=== PATIENT | male | born 1960 | race Caucasian/White ===

== ENCOUNTER 2020-06-26 11:06 | Inpatient (IN) | payer MEDICAID ==
[~2020-06-26] VITALS: Ht 172.7 cm; Wt 55.0 kg
[2020-06-26] MEDS ORDERED: nitroGLYCERIN 0.4mg/hour patch TD ONE (13:15)
[2020-06-26] MEDS ORDERED: aspirin 81mg tab.chew PO ONE (13:15)
[2020-06-26] MEDS ORDERED: ondansetron/PF 4mg/2ml inj IV PRN (13:55)
[2020-06-26] MEDS ORDERED: morphine 2 MG/ML inj. syringe IV PRN (13:55)
[2020-06-26] MEDS ORDERED: acetaminophen 325mg tablet PO PRN (13:55)
[2020-06-26] MEDS ORDERED: mag hydrox/Alum hydrox/simeth 30ml oral suspension PO PRN (13:55)
[2020-06-26] MEDS: CefTRIAXone/D5W-Rocephin 1gm 50 ML IV SCH (14:36)
[2020-06-26] MEDS: normal saline 1000ml 1,000 ML IV SCH (14:37)
[2020-06-26] MEDS: ipratropium/albuterol 3ml nebule NEB SCH ×3 (15:08→23:25)
[2020-06-26] MEDS: hydrALAZINE 20mg/ml inj. IV PRN (17:53)
[2020-06-26 18:00] VITALS: BP 164/100
--- NOTE | 2020-06-26 18:01 | NUR ---
PAGER ID: [phone] MESSAGE: [id number] Roland Crooks Uncontrolled blood sugars. May I initiate protocol please? Maile [id number]
--- NOTE | 2020-06-26 18:05 | NUR ---
C/o difficulty breathing. Paged RT.
--- NOTE | 2020-06-26 18:08 | NUR ---
PAGER ID: [phone] MESSAGE: [id number] Roland Crooks C/o difficulty breathing. Very wheezy. May I please order PRN breathing tx? Maile [phone]
[2020-06-26] MEDS ORDERED: albuterol 2.5 MG/3 ML nebule NEB PRN (18:20)
[2020-06-26] MEDS ORDERED: dextrose ORAL solution 15 GM/59 ML bottle PO PRN ×2 (18:20)
[2020-06-26] MEDS ORDERED: dextrose 50%-water 50ml dispensing syringe IV PRN ×2 (18:20)
[2020-06-26] MEDS ORDERED: MESSAGE TO PHARMACY PO ONE (18:20)
[2020-06-26] MEDS ORDERED: glucagon, human recombinant 1mg kit SUBCUT PRN (18:20)
--- NOTE | 2020-06-26 18:28 | NUR ---
PAGER ID: [phone] MESSAGE: [id number] Roland Crooks No labs ordered. May we order routine labs? Maile [phone]
--- NOTE | 2020-06-26 18:38 | NUR ---
Problems reprioritized. Patient report given, questions answered & plan of care reviewed with Brandy SINGH.
--- NOTE | 2020-06-26 18:41 | NUR ---
Patient in room PCU 3017. I have received report from SAMANTHA Gr and had the opportunity to ask questions and assume patient care.
[2020-06-26] MEDS ORDERED: LORazepam 2 mg/ml vial IV ONE (19:25)
[2020-06-26] MEDS ORDERED: albuterol 2.5 MG/3 ML nebule CONTNEB PRN (19:25)
[2020-06-26] MEDS ORDERED: GABA300C PO (19:39)
[2020-06-26] MEDS ORDERED: CHOL500049 PO (19:39)
[2020-06-26] MEDS ORDERED: GLIM4TAB7 PO (19:39)
[2020-06-26] MEDS ORDERED: PRAV10TA39 PO (19:39)
[2020-06-26] MEDS ORDERED: NITR0.4T48 SL (19:39)
[2020-06-26] MEDS ORDERED: MIRT30TA8 PO (19:39)
[2020-06-26] MEDS ORDERED: SACC250C9 PO (19:39)
[2020-06-26] MEDS ORDERED: ASPI-611 PO (19:39)
[2020-06-26] MEDS ORDERED: AMYL1CAP54 PO (19:39)
[2020-06-26] MEDS ORDERED: MAGN400C PO (19:39)
[2020-06-26] MEDS ORDERED: HYDR-4353 PO (19:39)
[2020-06-26] MEDS: methylPREDNISolone sod succ 125mg/2ml vial IV SCH (19:45)
[2020-06-26] MEDS: insulin Lispro (HumaLOG) vial - multi-dose SQ SCH ×2 (19:45→21:27)
[2020-06-26 20:39] LABS: BASOPHILS % (AUTO) 0.3 % (0-1); EOSINOPHILS % (AUTO) 0 % (0-6); HEMATOCRIT 35.7 % (42.0-52.0); HEMOGLOBIN 11.8 g/dl (14.0-17.9); LYMPHOCYTES # (AUTO) 0.4 X10'3 (1.1-4.8); LYMPHOCYTES % (AUTO) 2.9 % (21-51); MEAN CORPUSCULAR HEMOGLOBIN 29.6 PG (27.0-31.0); MEAN CORPUSCULAR VOLUME 89.5 FL (78-98); MEAN PLATELET VOLUME 9.7 FL (7.4-10.4); MONOCYTES % (AUTO) 7.7 % (2-12); NEUTROPHILS # (AUTO) 12.1 X10'3 (1.8-7.7); NEUTROPHILS % (AUTO) 89.1 % (42-75); PLATELET COUNT 174 X10'3 (140-440); RED BLOOD COUNT 3.99 X10'6 (4.70-6.10); RED CELL DISTRIBUTION WIDTH 14.5 % (11.5-14.5); WHITE BLOOD COUNT 13.6 X10'3 (4.5-11.0)
[2020-06-26 20:44] LABS: ALANINE AMINOTRANSFERASE 75 U/L (12-78); ALBUMIN 3.2 G/DL (3.4-5.0); ALBUMIN/GLOBULIN RATIO 0.9 (1.1-1.5); ALKALINE PHOSPHATASE 122 IU/L (46-116); ANION GAP 11 (8-16); ASPARTATE AMINO TRANSFERASE 43 U/L (10-37); BILIRUBIN,TOTAL 1.4 MG/DL (0.1-1.0); BLOOD UREA NITROGEN 35 MG/DL (7-18); CALCIUM 8.6 MG/DL (8.5-10.1); CHLORIDE 97 MMOL/L (99-107); CREATININE 1.52 MG/DL (0.60-1.10); POTASSIUM 3.6 MMOL/L (3.5-5.1); SODIUM 132 MMOL/L (135-145); TOTAL CARBON DIOXIDE 24.2 MMOL/L (24-32); TOTAL PROTEIN 6.9 G/DL (6.4-8.2); eGFR 47 ML/MIN
[2020-06-26 20:50] LABS: GLUCOSE 509 MG/DL (70-104)
[2020-06-26] MEDS: heparin, porcine 5000 units/ml vial SQ SCH (21:20)
[2020-06-26] MEDS: insulin glargine (Lantus) pen - multi-dose SQ SCH (21:25)
[2020-06-26 22:00] VITALS: BP 143/100
[2020-06-27] VITALS (7 sets, daily range): BP systolic 122–163; BP diastolic 62–112
[2020-06-27] MEDS: normal saline 1000ml 1,000 ML IV SCH (00:12)
--- NOTE | 2020-06-27 00:24 | NUR ---
PRN hydralazine given per order for BP 143/100
[2020-06-27] MEDS: ipratropium/albuterol 3ml nebule NEB SCH ×6 (03:40→23:21)
[2020-06-27 05:59] LABS: BASOPHILS % (AUTO) 0.3 % (0-1); EOSINOPHILS % (AUTO) 0 % (0-6); HEMATOCRIT 35.8 % (42.0-52.0); HEMOGLOBIN 12.2 g/dl (14.0-17.9); LYMPHOCYTES # (AUTO) 0.4 X10'3 (1.1-4.8); LYMPHOCYTES % (AUTO) 4.2 % (21-51); MEAN CORPUSCULAR HEMOGLOBIN 30.1 PG (27.0-31.0); MEAN CORPUSCULAR HGB CONC 34.2 g/dL (33.0-36.5); MEAN CORPUSCULAR VOLUME 88.1 FL (78-98); MEAN PLATELET VOLUME 9.3 FL (7.4-10.4); MONOCYTES # (AUTO) 0.4 X10'3 (0-0.9); MONOCYTES % (AUTO) 3.9 % (2-12); NEUTROPHILS # (AUTO) 9.7 X10'3 (1.8-7.7); NEUTROPHILS % (AUTO) 91.6 % (42-75); PLATELET COUNT 180 X10'3 (140-440); RED BLOOD COUNT 4.06 X10'6 (4.70-6.10); RED CELL DISTRIBUTION WIDTH 14.8 % (11.5-14.5); WHITE BLOOD COUNT 10.6 X10'3 (4.5-11.0)
[2020-06-27 06:04] LABS: ALBUMIN 3.3 G/DL (3.4-5.0); ANION GAP 12 (8-16); BLOOD UREA NITROGEN 32 MG/DL (7-18); BUN/CREATININE RATIO 26.9 (5.4-32.0); CHLORIDE 102 MMOL/L (99-107); CREATININE 1.19 MG/DL (0.60-1.10); GLUCOSE 55 MG/DL (70-104); SODIUM 139 MMOL/L (135-145); TOTAL CARBON DIOXIDE 25.3 MMOL/L (24-32); eGFR 62 ML/MIN
--- NOTE | 2020-06-27 06:23 | NUR ---
Problems reprioritized. Patient report given, questions answered & plan of care reviewed with Whitney Cano RN and SAMANTHA Auguste.
--- NOTE | 2020-06-27 06:26 | NUR ---
critical K of 3.0 PAGER ID: [phone] MESSAGE: [id number] Angel Crooks: critical K of 3.0. can he please be on protocol? Thanks -SAMANTHA Olson
[2020-06-27] MEDS ORDERED: magnesium 4gm in 100ml NS 100 ML IV PRN (06:30)
[2020-06-27] MEDS ORDERED: potassium Cl 20 mEq SR tablet PO PRN (06:30)
[2020-06-27] MEDS ORDERED: magnesium Cl slow-release 64mg tablet PO PRN (06:30)
[2020-06-27] MEDS ORDERED: potassium CL 10mEq/100ml bag 100 ML IV PRN (06:30)
--- NOTE | 2020-06-27 06:44 | NUR ---
Patient in room PCU 3017. I have received report from Brandy SINGH and had the opportunity to ask questions and assume patient care. Patient is resting in bed, blood sugar was 55 and patient was treated according to protocol. Will continue to monitor.
[2020-06-27] MEDS: morphine 2 MG/ML inj. syringe IV PRN ×3 (08:02→21:35)
[2020-06-27] MEDS: CefTRIAXone/D5W-Rocephin 1gm 50 ML IV SCH (08:06)
[2020-06-27] MEDS: methylPREDNISolone sod succ 125mg/2ml vial IV SCH (08:08)
[2020-06-27] MEDS: aspirin 81mg tablet.DR PO SCH (08:09)
[2020-06-27] MEDS: heparin, porcine 5000 units/ml vial SQ SCH ×2 (08:11→19:40)
[2020-06-27] MEDS: atorvastatin 20mg tablet PO SCH (08:12)
[2020-06-27] MEDS: hydrALAZINE 20mg/ml inj. IV PRN ×2 (11:02→17:11)
--- NOTE | 2020-06-27 12:00 | NUR ---
MESSAGE: Rm. [id number] Valeriy Pt. asking about home meds [place] 10 and Creon. Both have been reviewed and on the med rec. Thanks Kalyani [phone]
--- NOTE | 2020-06-27 14:04 | NUR ---
Malnutrition/DM Consults: Pt admit w/ acute respiratory failure, COPD exacerbation continues to smoke, DM, uncontrolled HTN, and type 2 VA r/t demand ischemia per MD. A1C 7.3 on steroids this admit. Pt seen by RD reports wt 4 years ago prior to initial pancreatitis episode 150# but unable to provide more recent wt hx. Pt reports drinks Boost at home for additional kcals daily. Pt has normal strength, no edema/wounds, and PO meals today pending. Pt eating during RD visit on carb controlled diet though 0% PO first meal last night. Pt has no visible signs of muscle/fat wasting to caodaism/orbital areas though does appear thin. Currently no scaled wt this admit or prior accurate wt hx. At this time pt does not meet minimum [address] provided written/verbal DM and verbal high protein diet eds w/ RD contact information and Glucerna ONS coupons provided. Pt is agreeable to chocolate/strawberry Glucerna TIDWM this admit; MD notified. Will continue to monitor for additional protein/kcal needs this admit. Addendum: 06/27/20 at [address] Amended: Links added.
[2020-06-27] MEDS: diltiazem CD 120mg capsule (once-daily) PO SCH (14:20)
[2020-06-27] MEDS: furosemide 20MG tablet PO SCH (14:20)
--- NOTE | 2020-06-27 15:52 | NUR ---
Orientee documentation: I have reviewed and agree with interventions, assessments performed and documented by Kalyani SINGH .[place]rientee Medication Administration: For this medication-pass time frame,medication were reviewed, dispensed, administered and documented per hospital policy by Dionte SINGH. up to the time that I am being flexed off.
[2020-06-27] MEDS: potassium Cl 20 mEq SR tablet PO PRN ×2 (15:55→19:57)
--- NOTE | 2020-06-27 16:04 | NUR ---
Problems reprioritized. Patient report given, questions answered & plan of care reviewed with Meron SINGH.
--- NOTE | 2020-06-27 16:11 | NUR ---
Patient in room PCU 3018N. I have received report from Whitney Cano RN and had the opportunity to ask questions and assume patient care. I will also be taking over care with Whitney Cano's orientee, Kalyani Jesus RN
[2020-06-27] MEDS ORDERED: NUT.TX.GLUC.INTOLER,LAC-FR,SOY (GLUCERNA) 237 ML PO SCH (18:00)
--- NOTE | 2020-06-27 18:00 | NUR ---
Patient in room PCU 3017. I have received report from Tess and had the opportunity to ask questions and assume patient care.
--- NOTE | 2020-06-27 18:01 | NUR ---
Problems reprioritized. Patient report given, questions answered & plan of care reviewed with Pam.
--- NOTE | 2020-06-27 18:14 | NUR ---
Patient in room PCU 3017. I have received report from Kalyani SINGH and Meron RN and had the opportunity to ask questions and assume patient care.
[2020-06-27] MEDS: insulin Lispro (HumaLOG) vial - multi-dose SQ SCH (18:51)
[2020-06-27] MEDS: methylPREDNISolone sod succ/PF 40mg inj. IV SCH (19:38)
[2020-06-27] MEDS: lactobacillus rhamnosus 10,000 MMU CELLS/CAPSULE PO SCH (19:39)
[2020-06-27] MEDS: hydrALAZINE 25 MG tablet PO SCH (19:41)
[2020-06-27] MEDS: insulin glargine (Lantus) pen - multi-dose SQ SCH (21:00)
[2020-06-28] VITALS (7 sets, daily range): BP systolic 119–203; BP diastolic 82–102
[2020-06-28] MEDS: morphine 2 MG/ML inj. syringe IV PRN ×3 (02:25→20:11)
[2020-06-28] MEDS: hydrALAZINE 20mg/ml inj. IV PRN (02:33)
[2020-06-28] MEDS: ipratropium/albuterol 3ml nebule NEB SCH ×6 (03:31→23:01)
[2020-06-28 06:11] LABS: BASOPHILS % (AUTO) 0.1 % (0-1); EOSINOPHILS % (AUTO) 0 % (0-6); HEMATOCRIT 35.1 % (42.0-52.0); HEMOGLOBIN 11.8 g/dl (14.0-17.9); LYMPHOCYTES # (AUTO) 0.3 X10'3 (1.1-4.8); MEAN CORPUSCULAR HEMOGLOBIN 29.9 PG (27.0-31.0); MEAN CORPUSCULAR HGB CONC 33.5 g/dL (33.0-36.5); MEAN CORPUSCULAR VOLUME 89.3 FL (78-98); MEAN PLATELET VOLUME 8.9 FL (7.4-10.4); MONOCYTES # (AUTO) 0.3 X10'3 (0-0.9); MONOCYTES % (AUTO) 2.8 % (2-12); NEUTROPHILS # (AUTO) 8.3 X10'3 (1.8-7.7); NEUTROPHILS % (AUTO) 94.1 % (42-75); PLATELET COUNT 188 X10'3 (140-440); RED BLOOD COUNT 3.93 X10'6 (4.70-6.10); RED CELL DISTRIBUTION WIDTH 14.9 % (11.5-14.5); WHITE BLOOD COUNT 8.8 X10'3 (4.5-11.0)
[2020-06-28 06:22] LABS: ALBUMIN 3.2 G/DL (3.4-5.0); ANION GAP 9 (8-16); BLOOD UREA NITROGEN 27 MG/DL (7-18); BUN/CREATININE RATIO 17.6 (5.4-32.0); CALCIUM 8.9 MG/DL (8.5-10.1); CHLORIDE 98 MMOL/L (99-107); CREATININE 1.53 MG/DL (0.60-1.10); GLUCOSE 262 MG/DL (70-104); SODIUM 131 MMOL/L (135-145); TOTAL CARBON DIOXIDE 24.3 MMOL/L (24-32); eGFR 46 ML/MIN
--- NOTE | 2020-06-28 06:29 | NUR ---
Problems reprioritized. Patient report given, questions answered & plan of care reviewed with Whitney SINGH and Kalyani SINGH.
[2020-06-28] MEDS: CefTRIAXone/D5W-Rocephin 1gm 50 ML IV SCH (07:18)
[2020-06-28] MEDS: methylPREDNISolone sod succ/PF 40mg inj. IV SCH ×2 (07:19→20:06)
[2020-06-28] MEDS: atorvastatin 20mg tablet PO SCH (07:20)
[2020-06-28] MEDS: furosemide 20MG tablet PO SCH (07:20)
[2020-06-28] MEDS: aspirin 81mg tablet.DR PO SCH (07:20)
[2020-06-28] MEDS: diltiazem CD 120mg capsule (once-daily) PO SCH (07:21)
[2020-06-28] MEDS: heparin, porcine 5000 units/ml vial SQ SCH ×2 (07:21→20:06)
[2020-06-28] MEDS: lactobacillus rhamnosus 10,000 MMU CELLS/CAPSULE PO SCH ×2 (07:21→20:06)
[2020-06-28] MEDS: hydrALAZINE 25 MG tablet PO SCH ×2 (07:22→20:10)
[2020-06-28] MEDS: insulin Lispro (HumaLOG) vial - multi-dose SQ SCH ×3 (08:23→20:52)
--- NOTE | 2020-06-28 10:48 | NUR ---
2017A maria victoria Crooks is requesting a nicotine patch please. Kalyani [phone]
[2020-06-28] MEDS ORDERED: nicotine 14mg patch - 24hr TD ONE (10:50)
[2020-06-28] MEDS: potassium Cl 20 mEq SR tablet PO SCH (11:42)
[2020-06-28] MEDS: magnesium hydroxide 30ml (MOM) UD suspension PO PRN (14:53)
--- NOTE | 2020-06-28 17:49 | NUR ---
Orientee documentation: I have reviewed and agree with interventions, assessments performed and documented by Kalyani Jansen. [place] Medication Administration: For this medication-pass time frame, medication were reviewed, dispensed, administered and documented per hospital policy by Kalyani JANSEN.
--- NOTE | 2020-06-28 18:25 | NUR ---
Patient in room PCU 3017. I have received report from Kalyani SINGH and Whitney SINGH and had the opportunity to ask questions and assume patient care.
--- NOTE | 2020-06-28 19:04 | NUR ---
PAGER ID: [phone] MESSAGE: [id number] Angel Crooks Blood sugar is 405 protocol says to give 16 units. Patient does not want that much and wants me to give him 8 units. Are you okay with me only giving 8 units per patient. Pam SINGH ext [phone]
--- NOTE | 2020-06-28 19:07 | NUR ---
Per Dr Kumari, was given permission to give patient desired dose of 8 units short acting insulin.
[2020-06-28] MEDS: insulin glargine (Lantus) pen - multi-dose SQ SCH (20:51)
[2020-06-29] MEDS: morphine 2 MG/ML inj. syringe IV PRN ×2 (02:53→09:10)
[2020-06-29 02:57] VITALS: BP 120/86
[2020-06-29] MEDS: ipratropium/albuterol 3ml nebule NEB SCH ×3 (03:14→11:42)
[2020-06-29 06:03] LABS: ALBUMIN 3.3 G/DL (3.4-5.0); ANION GAP 10 (8-16); BLOOD UREA NITROGEN 39 MG/DL (7-18); BUN/CREATININE RATIO 24.1 (5.4-32.0); CALCIUM 8.7 MG/DL (8.5-10.1); CHLORIDE 95 MMOL/L (99-107); CREATININE 1.62 MG/DL (0.60-1.10); GLUCOSE 175 MG/DL (70-104); POTASSIUM 4.1 MMOL/L (3.5-5.1); SODIUM 130 MMOL/L (135-145); TOTAL CARBON DIOXIDE 24.7 MMOL/L (24-32); eGFR 43 ML/MIN
[2020-06-29 06:07] LABS: BASOPHILS % (AUTO) 0.1 % (0-1); EOSINOPHILS % (AUTO) 0 % (0-6); HEMATOCRIT 35.3 % (42.0-52.0); LYMPHOCYTES # (AUTO) 0.2 X10'3 (1.1-4.8); LYMPHOCYTES % (AUTO) 2.2 % (21-51); MEAN CORPUSCULAR HEMOGLOBIN 29.9 PG (27.0-31.0); MEAN CORPUSCULAR VOLUME 87.8 FL (78-98); MEAN PLATELET VOLUME 9.2 FL (7.4-10.4); MONOCYTES # (AUTO) 0.2 X10'3 (0-0.9); MONOCYTES % (AUTO) 2.2 % (2-12); NEUTROPHILS # (AUTO) 8.4 X10'3 (1.8-7.7); NEUTROPHILS % (AUTO) 95.5 % (42-75); PLATELET COUNT 193 X10'3 (140-440); RED BLOOD COUNT 4.02 X10'6 (4.70-6.10); RED CELL DISTRIBUTION WIDTH 14.5 % (11.5-14.5); WHITE BLOOD COUNT 8.8 X10'3 (4.5-11.0)
--- NOTE | 2020-06-29 06:10 | NUR ---
Patient in room PCU 3017. I have received report from Pam SINGH and had the opportunity to ask questions and assume patient care. Patient resting in bed, offers no complaints, will continue to monitor.
--- NOTE | 2020-06-29 06:34 | NUR ---
Problems reprioritized. Patient report given, questions answered & plan of care reviewed with Whitney SINGH and Kalyani SINGH.
[2020-06-29] MEDS ORDERED: nicotine 14mg patch - 24hr TD SCH (08:00)
[2020-06-29] MEDS: CefTRIAXone/D5W-Rocephin 1gm 50 ML IV SCH (09:02)
[2020-06-29] MEDS: methylPREDNISolone sod succ/PF 40mg inj. IV SCH (09:04)
[2020-06-29] MEDS: heparin, porcine 5000 units/ml vial SQ SCH (09:06)
[2020-06-29] MEDS: magnesium hydroxide 30ml (MOM) UD suspension PO PRN (09:08)
[2020-06-29] MEDS: lactobacillus rhamnosus 10,000 MMU CELLS/CAPSULE PO SCH (09:10)
[2020-06-29] MEDS: atorvastatin 20mg tablet PO SCH (09:11)
[2020-06-29] MEDS: furosemide 20MG tablet PO SCH (09:11)
[2020-06-29] MEDS: aspirin 81mg tablet.DR PO SCH (09:11)
[2020-06-29 09:12] VITALS: BP_SYST 138
[2020-06-29] MEDS: hydrALAZINE 25 MG tablet PO SCH (09:12)
[2020-06-29] MEDS: diltiazem CD 120mg capsule (once-daily) PO SCH (09:13)
[2020-06-29] MEDS: insulin Lispro (HumaLOG) vial - multi-dose SQ SCH (09:31)
[2020-06-29] MEDS ORDERED: bisacodyl 10mg suppository rectal RC STA (09:32)
[2020-06-29] MEDS ORDERED: PRED10TA23 PO (10:00)
[2020-06-29] MEDS ORDERED: HYDR-4069 PO (10:00)
[2020-06-29] MEDS ORDERED: CARCD120C PO (10:00)
[2020-06-29] MEDS ORDERED: DOXY100C2 PO (10:00)
[2020-06-29] MEDS: potassium Cl 20 mEq SR tablet PO SCH (10:58)
--- NOTE | 2020-06-29 12:03 | NUR ---
pt. refused 1200 accu check stating, "im going home, i'll check it myself." Primary nurse aware.
--- NOTE | 2020-06-29 14:03 | NUR ---
Patient was discharged home, packet was reviewed before signing, all belongings were sent home,new medications sent to pharmacy, medications that had been stored in the pharmacy were recovered and sent home with patient. Yarelis will make own follow up, and he left via private vehicle with sister.
--- NOTE | 2020-06-29 14:13 | NUR ---
Orientee documentation: I have reviewed and agree with interventions, assessments performed and documented by Kalyani SINGH. [place] Medication Administration: For this medication-pass time frame, medication were reviewed, dispensed, administered and documented per hospital policy by Kalyani SINGH.
== END 2020-06-29 12:50 | disposition home or self-care (01) | DRG 140 ==
LOC: ER 11:07 → ED HOLD 13:52 → EDBEDREQ 14:33 → PCU 3S 15:29
PROVIDERS: ADMIT Family Medicine; ATTEND Family Medicine
DX: J44.1 Chronic obstructive pulmonary disease with (acute) exacerbation (principal); J96.01 Acute respiratory failure with hypoxia; I21.A1 Myocardial infarction type 2; E11.9 Type 2 diabetes mellitus without complications; I34.0 Nonrheumatic mitral (valve) insufficiency; I50.9 Heart failure, unspecified; E87.6 Hypokalemia; F17.210 Nicotine dependence, cigarettes, uncomplicated; I42.9 Cardiomyopathy, unspecified; F12.90 Cannabis use, unspecified, uncomplicated; I11.0 Hypertensive heart disease with heart failure; I25.10 Atherosclerotic heart disease of native coronary artery without angina pectoris; I25.2 Old myocardial infarction; Z85.118 Personal history of other malignant neoplasm of bronchus and lung; Z92.21 Personal history of antineoplastic chemotherapy; Z92.3 Personal history of irradiation; Z71.6 Tobacco abuse counseling
CPT/HCPCS: 36415; 71046; 80048; 80053; 82948; 83036; 84484; 85025; 87081; 93005; 93306; 94640; 94760; 99285; G0378; J0360; J0696; J1644; J1815; J2060; J2270; J2920; J2930; J7030